=== PATIENT | female | born 1990 | race Two or more races ===

== ENCOUNTER 2025-07-16 20:55 | Outpatient (CLI) | payer OTHER ==
[~2025-07-16] VITALS: Ht 152.4 cm; Wt 69.4 kg
[2025-07-16 19:53] VITALS: BP 111/72; O2SAT 98
[2025-07-16] MEDS ORDERED: MAGNESIUM SULFATE IN WATER 0.04 GM/ML IV.SOLN IV ONE (21:51)
[2025-07-16] MEDS ORDERED: MAGNESIUM SULFATE IN WATER 500 ML IV SCH (22:15)
[2025-07-16] MEDS ORDERED: RINGERS SOLUTION,LACTATED 1,000 ML IV SCH (22:15)
[2025-07-16 23:32] VITALS: BP 108/64
[2025-07-17 03:24] VITALS: BP 89/53
[2025-07-17 06:15] VITALS: BP 94/61; O2SAT 100
[2025-07-17 09:18] VITALS: BP 94/61
== END 2025-07-17 09:18 | disposition home or self-care (01) ==
LOC: OBS/DEL 20:55
PROVIDERS: ATTEND Obstetrics & Gynecology
DX: O26.893 Other specified pregnancy related conditions, third trimester (principal); Z3A.31 31 weeks gestation of pregnancy

== ENCOUNTER 2025-08-09 17:37 | Inpatient (IN) | payer OTHER ==
[~2025-08-09] VITALS: Ht 152.4 cm; Wt 2.3 kg
[2025-08-09 11:30] VITALS: BP 116/69; O2SAT 98
[2025-08-09 16:48] VITALS: BP 131/75
[2025-08-09] MEDS ORDERED: BETAMETHASONE ACETATE,SOD PHOS 30 MG/5 ML ML IM SCH (19:30)
[2025-08-09] MEDS ORDERED: RINGERS SOLUTION,LACTATED 1,000 ML IV SCH (19:30)
[2025-08-09 19:44] LABS: BASO % 0.2 % (0.1-1.2); EOS # 0.32 (0.04-0.54); EOS % 1.9 % (0.7-7.0); LYMPH # 3.13 (1.18-3.74); LYMPH % 18.7 % (19.3-53.1); MEAN PLATELET VOLUME 13.50 fl (9.4-12.4); MONO # 1.05 (0.24-0.82); MONO % 6.3 % (4.7-12.5); NEUT # 12.14 (1.56-6.13); NEUT % 72.3 % (34.0-71.1); RED CELL DISTRIBUTION WIDTH 13.1 % (11.6-14.4)
[2025-08-09 20:32] LABS: ALT/SGPT 24.0 U/L (12-78); AST/SGOT 25.0 U/L (15-37); BILIRUBIN TOTAL 0.27 mg/dL (0.3-1.2); BUN CREA RATIO 10.0 (7.0-25.0); CREATININE SERUM 0.79 mg/dL (0.55-1.02); GFR 82.82; GLOBULINA 3.7 G/DL (2.4-3.5); GLUCOSE FASTING 106.0 mg/dL (65-100); OSMOLALITY SERUM 280.0 MOSM/KG (275-295)
[2025-08-09 20:46] LABS: INR < 0.93
[2025-08-09 23:30] VITALS: BP 116/69
[2025-08-10 03:41] VITALS: BP 111/69
[2025-08-10] MEDS ORDERED: TERBUTALINE SULFATE 1 MG/ML AMPUL SUBCUTANEO ONE (05:30)
[2025-08-10 07:12] VITALS: BP 97/52
[2025-08-10 11:40] VITALS: BP 131/75
[2025-08-10] MEDS ORDERED: PRENATABS RX T1 EACH PO (12:05)
[2025-08-10] MEDS ORDERED: CLINDAMYCIN PHOSPHATE 900 MG in DEXTROSE 5 % IN WATER 100 ML IV SCH (13:00)
[2025-08-10] MEDS ORDERED: GENTAMICIN SULFATE 2.5 MG/ML (Adulto) IV SCH (14:00)
[2025-08-10 14:05] LABS: BASO % 0.1 % (0.1-1.2); EOS # 0.01 (0.04-0.54); EOS % 0.0 % (0.7-7.0); LYMPH # 2.04 (1.18-3.74); LYMPH % 9.9 % (19.3-53.1); MEAN PLATELET VOLUME 13.40 fl (9.4-12.4); MONO # 0.67 (0.24-0.82); MONO % 3.2 % (4.7-12.5); NEUT # 17.26 (1.56-6.13); NEUT % 83.7 % (34.0-71.1); RED CELL DISTRIBUTION WIDTH 13.6 % (11.6-14.4)
[2025-08-10 14:06] LABS: INR < 0.93
[2025-08-10 14:32] LABS: BAND MAN 16.0 %; LYMPHOCYTE MAN 7.0 %; NEUTROPHILS MAN 72.0 %
[2025-08-10 14:33] LABS: METAMYELOCYTE 1.0 %
[2025-08-10 15:06] VITALS: BP 107/56
[2025-08-10] MEDS ORDERED: OXYTOCIN 10 UNITS/ML VIAL IV ONE (17:30)
[2025-08-10] MEDS ORDERED: ERYTHROMYCIN BASE OPHT 1GM EACH TUBE OP ONE (17:30)
[2025-08-10 19:26] VITALS: BP 120/76
[2025-08-10] MEDS ORDERED: BETAMETHASONE ACETATE,SOD PHOS 30 MG/5 ML ML IM NR (19:30)
[2025-08-10] MEDS ORDERED: KETOROLAC TROMETHAMINE 30 MG VIAL IV SCH (21:58)
[2025-08-10] MEDS ORDERED: OXYTOCIN 1,000 ML IV ONE (22:00)
[2025-08-11] MEDS ORDERED: MORPHINE SULFATE 4 MG/ML VIAL IV SCH (01:00)
[2025-08-11] MEDS ORDERED: ACETAMINOPHEN 500 MG GEL..CAP PO SCH (06:00)
[2025-08-11 06:12] LABS: BASO % 0.4 % (0.1-1.2); EOS # 0.01 (0.04-0.54); EOS % 0.0 % (0.7-7.0); LYMPH # 2.46 (1.18-3.74); LYMPH % 9.1 % (19.3-53.1); MEAN PLATELET VOLUME 13.20 fl (9.4-12.4); MONO # 1.04 (0.24-0.82); MONO % 3.9 % (4.7-12.5); NEUT # 21.51 (1.56-6.13); NEUT % 79.8 % (34.0-71.1); RED CELL DISTRIBUTION WIDTH 13.4 % (11.6-14.4)
[2025-08-11 07:01] LABS: BAND MAN 13.0 %; LYMPHOCYTE MAN 9.0 %; METAMYELOCYTE 1.0 %; MONOCYTE MAN 3.0 %; NEUTROPHILS MAN 74.0 %
[2025-08-11 08:44] VITALS: BP 139/77; O2SAT 97
[2025-08-11] MEDS ORDERED: PNV,CALCIUM 72/IRON/FOLIC ACID 1 TAB TABLET PO SCH (09:00)
[2025-08-11] MEDS ORDERED: SIMETHICONE 125 MG CAPSULE PO SCH (09:00)
[2025-08-11] MEDS ORDERED: DOCUSATE SODIUM 100MG CAP PO SCH (09:00)
[2025-08-11] MEDS ORDERED: GABAPENTIN 300 MG CAPSULE PO SCH (09:00)
[2025-08-11 18:06] VITALS: BP 111/70
[2025-08-12 01:28] VITALS: BP 108/73
[2025-08-12 08:00] VITALS: BP 110/72
[2025-08-12 16:30] VITALS: BP 112/75
[2025-08-13 01:45] VITALS: BP 129/81; O2SAT 99
[2025-08-13 08:49] VITALS: BP 123/82
== END 2025-08-13 17:50 | disposition home or self-care (01) | DRG 786 ==
LOC: OBS/DEL 17:37 → OB/GYN 08-10 11:22 → LDR 08-10 11:22 → OB/GYN 08-10 22:06
PROVIDERS: ADMIT Obstetrics & Gynecology Gynecology; ATTEND Obstetrics & Gynecology Gynecology
PROC: BY4FZZZ Ultrasonography of Third Trimester, Single Fetus (ICD-10-PCS; 2025-08-09)
PROC: 4A1HXCZ Monitoring of Products of Conception, Cardiac Rate, External Approach (ICD-10-PCS; 2025-08-10)
PROC: 10D00Z1 Extraction of Products of Conception, Low, Open Approach (ICD-10-PCS; principal; 2025-08-10 18:45)
DX: O45.8X3 Other premature separation of placenta, third trimester (principal); O60.14X0 Preterm labor third trimester with preterm delivery third trimester, not applicable or unspecified; Z3A.34 34 weeks gestation of pregnancy; Z37.0 Single live birth